=== PATIENT | male | born 1975 | race Caucasian/White ===

== ENCOUNTER 2019-05-06 14:30 | Emergency (ER) | payer MEDICAID, OTHER ==
[~2019-05-06] VITALS: Ht 167.6 cm; Wt 81.0 kg
[2019-05-06 14:34] VITALS: Ht 167.6 cm; Wt 81.0 kg
[2019-05-06] MEDS ORDERED: LIDOCAINE/MYLANTA 40 ML BTL PO STA (15:04)
[2019-05-06] MEDS ORDERED: PANTOPRAZOLE 40 MG INJ IV ONE (15:30)
[2019-05-06] MEDS ORDERED: PANT40TA3 PO (16:06)
--- NOTE | 2019-05-06 16:08 | ERD ---
ER Documentation Chief Complaint Chief Complaint ON AND OFF LUQ PAIN RADIAITNG TO BACK X 1 MONTH GOT WORSE HPI Patient is a 43-year-old male with no medical problems who presents with abdominal pain. The patient has left upper quadrant abdominal pain which started off and on for the past month. Is been worsening. The patient has never seen a doctor. He feels dizziness. He said the pain radiates to his back and up into his chest. He tried ibuprofen with no help. Upon review of old medical records this is the patient's first visit to the emergency department. He does not currently have a primary doctor. ROS All systems reviewed and are negative except as per history of present illness. Medications Home Meds Active Scripts Pantoprazole* (Protonix*) 40 Mg Tablet., 40 MG PO DAILY, #20 TAB Prov:TOM BREWSTER MD 05/06/19 Allergies Allergies: Coded Allergies: No Known Allergy (Unverified , 05/06/19) PMhx/Soc Medical and Surgical Hx: pt denies Medical Hx, pt denies Surgical Hx Hx Alcohol Use: Yes (12beers/week) Hx Substance Use: Yes (marijuana daily ) Hx Tobacco Use: No Smoking Status: Never smoker FmHx Family History: No diabetes Physical Exam Vitals Vital Signs Date Temp Pulse Resp B/P (MAP) Pulse Ox O2 O2 Flow FiO2 Time Delivery Rate 05/06/19 97.7 63 18 129/96 98 Room Air 15:35 (107) 05/06/19 97.7 64 24 122/80 96 14:34 (94) Physical Exam Const: No acute distress Head: Atraumatic Eyes: Normal Conjunctiva ENT: Normal External Ears, Nose and Mouth. Neck: Full range of motion. No meningismus. Resp: Clear to auscultation bilaterally Cardio: Regular rate and rhythm, no murmurs Abd: Soft, left upper quadrant tenderness to palpation without rebound or guarding Skin: No petechiae or rashes Back: No midline or flank tenderness Ext: No cyanosis, or edema Neur: Awake and alert Psych: Normal Mood and Affect Result Diagram: 05/06/19 1528 05/06/19 1528 Results 24 hrs Laboratory Tests Test 05/06/19 15:28 05/06/19 15:37 White Blood Count 6.1 10^3/ul Red Blood Count 4.86 10^6/ul Hemoglobin 14.8 g/dl Hematocrit 43.2 % Mean Corpuscular Volume 88.9 fl Mean Corpuscular Hemoglobin 30.5 pg Mean Corpuscular Hemoglobin Concent 34.3 g/dl Red Cell Distribution Width 12.8 % Platelet Count 232 10^3/UL Mean Platelet Volume 9.8 fl Immature Granulocytes % 0.200 % Neutrophils % 56.6 % Lymphocytes % 32.1 % Monocytes % 8.4 % Eosinophils % 2.0 % Basophils % 0.7 % Nucleated Red Blood Cells % 0.0 /100WBC Immature Granulocytes # 0.010 10^3/ul Neutrophils # 3.4 10^3/ul Lymphocytes # 2.0 10^3/ul Monocytes # 0.5 10^3/ul Eosinophils # 0.1 10^3/ul Basophils # 0.0 10^3/ul Nucleated Red Blood Cells # 0.0 10^3/ul Sodium Level 142 mmol/L Potassium Level 4.0 mmol/L Chloride Level 109 mmol/L Carbon Dioxide Level 26 mmol/L Anion Gap 7 Blood Urea Nitrogen 15 mg/dl Creatinine 0.92 mg/dl Est Glomerular Filtrat Rate mL/min > 60 mL/min Glucose Level 93 mg/dl Calcium Level 9.1 mg/dl Total Bilirubin 0.3 mg/dl Direct Bilirubin 0.00 mg/dl Indirect Bilirubin 0.3 mg/dl Aspartate Amino Transf (AST/SGOT) 21 IU/L Alanine Aminotransferase (ALT/SGPT) 30 IU/L Alkaline Phosphatase 79 IU/L Troponin I < 0.012 ng/ml Total Protein 7.4 g/dl Albumin 4.2 g/dl Globulin 3.20 g/dl Albumin/Globulin Ratio 1.31 Lipase 49 U/L Urine Color YELLOW Urine Clarity CLEAR Urine pH 5.0 Urine Specific [place] 1.026 Urine Ketones NEGATIVE mg/dL Urine Nitrite NEGATIVE mg/dL Urine Bilirubin NEGATIVE mg/dL Urine Urobilinogen NEGATIVE mg/dL Urine Leukocyte Esterase NEGATIVE [place]/ul Urine Hemoglobin NEGATIVE mg/dL Urine Glucose NEGATIVE mg/dL Urine Total Protein NEGATIVE mg/dl Current Medications Medications Dose Sig/Amarilis Start Time Status Last (Trade) Ordered Route PRN Stop Time Admin Dose Reason Admin 40 ml ONCE STAT 05/06/19 DC 05/06/19 Miscellaneous PO 15:04 15:31 Medication 05/06/19 15:06 (Gi Cocktail (2)) 40 mg ONCE ONCE 05/06/19 DC 05/06/19 Pantoprazole IV 15:30 15:31 (Protonix 05/06/19 15:31 Iv) Procedures/MDM EKG read by me: Rate/Rhythm: Sinus bradycardia rate of 54 Intervals: Normal Impression: Sinus bradycardia without ischemia CT abdomen pelvis read by radiology. Chest x-ray read by radiology. Smoking Cessation Therapy: Pt. was lectured for greater than 3 minutes on the health risks of continued smoking and the benefits of cessation. Patient is a 43-year-old male with no medical problems who presents with abdominal pain. Laboratory studies are basically normal. Urinalysis is negative. CT scan shows no sign of surgical process. EKG shows no signs of ischemia. Chest x-ray shows no pneumonia or pneumothorax. At this point I doubt appendicitis, cholecystitis, pancreatitis, or bowel obstruction. The patient will be discharged with a prescription for Protonix as this may be related to GI causes. The patient will need to follow-up with a local clinics within 24 to 48 hours and he has been provided with a list of the local clinics. Departure Diagnosis: Primary Impression: Abdominal pain Abdominal location: left upper quadrant Qualified Codes: R10.12 - Left upper quadrant pain Condition: Fair Patient Instructions: Abdominal Pain Ref[facility] Usted se lima hecho un examen mdico de control que le indica que no est en mert condicin que requiera tratamiento urgente en el Departamento de Emergencia. Un estudio ms profundo y el tratamiento de murray condicin pueden esperar sin ningn riesgo hasta que usted sea atendida/o en el consultorio de murray mdico o mert clnica. Es responsabilidad suya arreglar mert alexandr para el seguimiento del kika. MANEJO DE CONDICIONES NO URGENTES EN EL FUTURO 1) Si usted tiene un mdico de atencin primaria: Usted debera llamar a murray mdico de atencin primaria antes de venir al departamento de emergencia. Despus de las horas de consultorio, murray doctor o murray asociado/a est disponible por telfono. El mdico o enfermero de anthony en el servicio telefnico puede asesorarle por asiya medio para atender el problema, o kika contrario se puede programar mert alexandr. 2) Si usted no tiene un mdico de atencin primaria: Llame al mdico o clnica de referencia que aparece abajo steph las horas de consultorio para hacer mert alexandr para que le vean. CLINICAS: [place] [id number] [phone] [facility] [phone] [facility] [phone] [place] [phone] [place] [phone] [facility] [phone] [address] Additional Instructions: Llame al doctor MAANA y sharita mert ALEXANDR PARA DENTRO DE 1-2 CHANG.Dgale a la secretaria que nosotros le instruimos hacer esta alexandr.Avise o llame si murray condicin se empeora antes de la alexandr. Regresa aqui si peor o no mejor. TOM BREWSTER MD May 06, 2019 16:08
[2019-05-06 17:56] VITALS: BP 111/83; PULSE 59; RESP 18
== END 2019-05-06 17:59 | disposition home or self-care (01) ==
LOC: E/R 14:30
DX: R10.12 Left upper quadrant pain (principal); R42 Dizziness and giddiness
CPT/HCPCS: 36415; 71045; 74176; 80053; 81003; 83690; 84484; 85025; 93005; 96374; C9113; Z7502; Z7610